=== PATIENT | male | born 2000 | race Caucasian/White ===

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

== ENCOUNTER → 2022-11-09 | Outpatient (CLI) | payer OTHER, SELFPAY ==
[2022-11-09 12:04] LABS: Bacteria 0 SEEN /hpf (None Seen); Mucous, Urine 0 SEEN /hpf (<or=2+); Red Blood Cells-Urine 0 SEEN /hpf (0-5); White Blood Cells 0 SEEN /hpf (0-5)
[2022-11-09 15:25] LABS: Color, Urine Yellow (Yellow); Glucose, Dipstick Normal (Normal); Ketone-Dipstick Negative (Negative); Leukocyte Esterase-Dipstick Negative /ul (Negative); Nitrite-Dipstick Negative (Negative); Occult Blood-Urine Negative /ul (Negative); Protein-Dipstick Negative (Negative); Urine Bilirubin Dipstick Negative (Negative); Urine Clarity Clear (Clear); Urine Urobilinogen Normal (Normal)
[2022-11-09 15:26] LABS: Absolute Lymphocyte Count 1.62 X10^3/uL (0.83-4.51); Absolute Neutrophil Count 2.1 X10^3/uL (2.0-7.7); Basophil# 0.06 X10^3/uL; Basophil% 1.4 % (0-1); Eosinophil# 0.14 X10^3/uL; Eosinophils% 3.3 % (0-5); Hematocrit 43.4 % (40-54); Hemoglobin 14.7 g/dL (13.0-16.5); Lymphocyte # 1.62 X10^3/ul (0.83-4.51); Lymphocyte % 38.1 % (19-41); Mean Corp Hgb Conc 33.9 g/dL (32-36); Mean Corpuscular Volume 88.6 fL (80-94); Mean Platelet Vol. 11.1 fl (6.2-12.0); Monocyte# 0.38 X10^3/uL; Monocyte% 8.9 % (0-10); NRBC Flagged by Analyzer 0 % (0-5); Neutrophil # 2.05 X10^3/uL (2.7-7.7); Neutrophil % 48.3 % (47-70); Platelet Count 213 K/mm3 (150-450); RBC Distribution Width CV 12.4 % (11.6-14.6); RBC Distribution Width SD 40.8 fl (35.1-43.9); White Blood Count 4.3 K/mm3 (4.4-11.0)
[2022-11-09 16:16] LABS: AST(SGOT) 17 U/L (15-37); Alanine Aminotransfer ALT/SGPT 25 U/L (16-61); Albumin, Serum 3.9 g/dL (3.2-5.0); Alkaline Phosphatase 81 U/L (45-117); Anion Gap 6 (5-15); BUN 11 mg/dL (7-18); BUN/Creat Ratio 11.1 RATIO (10-20); Calcium,Total 9.4 mg/dL (8.5-10.1); Chloride 109 mmol/L (98-107); Cholesterol 203 mg/dL (200); Creatinine, Serum 0.99 mg/dL (0.70-1.30); EST Glomerular Filtration Rate 102 mL/min (>60); Est Glom Filt Rate - Afr Amer 123 mL/min (>60); Globulin 3.8 g/dL (2.2-4.2); Glucose 96 mg/dL (74-106); High Density Lipoprotein 50 mg/dL; Potassium 3.9 mmol/L (3.5-5.1); Protein, Total 7.7 g/dL (6.4-8.2); Sodium Level 140 mmol/L (136-145); T4 Free Direct 0.85 ng/dL (0.76-1.46); Thyroid Stim Hormone (TSH) 1.23 uIU/mL (0.358-3.74); Triglycerides 105 mg/dL; Very Low Density Lipoprotein 21 mg/dL (5-40)
[2022-11-09 16:42] LABS: Squamous Epithelial Cells - UA 0-5 SEEN /hpf (0-5)
[2022-11-12 09:09] LABS: Anti-Thyroglobulin AB < 1.0 IU/mL (0.0-0.9); Thyroglobulin, Serum Qt. 49.7 ng/mL (1.4-29.2); Thyroid Peroxidase AB < 9 IU/mL (0-34); Thyroid Stim Immunoglob <0.10 IU/L (0.00-0.55)
== END | disposition home or self-care (01) ==
LOC: MTLAB 11:56
PROVIDERS: PCP Family Medicine; Referring Provider Family Medicine; Visit Provider Family Medicine
DX: E01.0 Iodine-deficiency related diffuse (endemic) goiter (principal); I10 Essential (primary) hypertension
CPT/HCPCS: 36415; 80053; 80061; 81001; 84432; 84439; 84443; 84445; 85025; 86376; 86800

== ENCOUNTER → 2023-03-12 | Outpatient (CLI) | payer OTHER, SELFPAY ==
--- NOTE | 2023-03-12 15:50 | US_ITS ---
EXAM: US RETROPERITONEAL LIMITED, RENAL CLINICAL INDICATION: HTN TECHNIQUE: Limited grayscale and color Doppler sonographic evaluation of the retroperitoneum was performed. COMPARISON: No relevant prior studies available. FINDINGS: RIGHT KIDNEY: Right kidney measures 12.8 x 5.9 x 5.5 cm. The right renal cortex measures 2.2 cm. No hydronephrosis. No shadowing calculus. No perinephric collection is demonstrated. LEFT KIDNEY: The left kidney measures 11.7 x 5.9 x 4.9 cm. The left renal cortex measures 2.2 cm. No hydronephrosis. No shadowing calculus. No perinephric collection is demonstrated. BLADDER: The bladder measures 6.1 x 8.3 x 8.4 cm for volume of 223 mL. The bladder wall measures 3 mm. There are bilateral ureteral jets. Post void the bladder measures 3.4 x 1.5 x 3.4 cm for volume of 9 mL. US/Kidney and Bladder IMPRESSION: No acute findings in the retroperitoneum. Electronically Signed: Roman Mejia MD at 0:00 EST ,
--- NOTE | 2023-03-12 15:50 | US_ITS ---
INDICATION: THYROMEGALY EXAMINATION: Ultrasound US Thyroid (eg thyroid, parathyroid, parotid) TECHNIQUE: Camacho scale and color doppler imaging was performed of the thyroid gland. COMPARISON: No relevant prior comparison study available FINDINGS: RIGHT THYROID LOBE: 5.2 x 1.7 x 1.6 cm, volume 7.5 mL. Parenchyma: The gland echotexture is homogenous. Thyroid vascularity is normal. LEFT THYROID LOBE: 5.1 x 1.8 x 1.2 cm, volume 5.7 mL. Parenchyma: The gland echotexture is homogenous. Thyroid vascularity is normal. ISTHMUS: 0.3 cm in maximum AP dimension. Estimated total number of nodules greater than equal to 1 cm: 0. Tiny colloid cysts noted. LYMPH NODES: Lymph nodes are seen in the neck with normal morphology. US/Thyroid IMPRESSION: Tiny colloid cysts. Otherwise unremarkable thyroid. Electronically Signed: Alejo Garrison MD at 0:46 EST ,
== END | disposition home or self-care (01) ==
PROVIDERS: PCP Family Medicine; Referring Provider Family Medicine; Visit Provider Family Medicine
DX: E01.0 Iodine-deficiency related diffuse (endemic) goiter (principal); I10 Essential (primary) hypertension
CPT/HCPCS: 76536; 76770

== ENCOUNTER 2023-04-14 12:00 | Outpatient (RCR) | payer OTHER, SELFPAY ==
--- NOTE | 2022-10-13 14:14 | HP.PTEVAL ---
Patient's Visit Information Visit Information Visit Information: RONAN LANDON is a 22 year old M referred to Physical Therapy by Dr. Lance Cheng MD with a diagnosis of S/P R ankle surgery 07/30/22. Date of Evaluation: 10/13/22 Physical Therapist: Bernard Hall, PT, ATC Visit Plan Frequency: 2-3x /Week Duration: 4-6 Weeks Plan: PT to be performed in a shoe. Begin with table ex's until after 10/19/22 when pt returns to Dr. Davis ankle PROM/mobs, stretching and strengthening, balance and proprio, bike, and HEP. Subjective Subjective: DOS: 07/30/22. Pt reports he had reconstruction surgery performed to his R ankle at that time secondary to have multiple torn ankle ligaments. 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 Pt notes he was 6 weeks NWB'ing, then able to transition to ambulating at that time. Pt reports he is here today to begin rehabilitation to his R ankle. Pt reports it is too early to tell if the surgery has worked at this time. Pt denies tingling or numbness in his R LE. Pt reports occasional sleep difficulty at this time secondary to sensitivity along his scars. 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 Pt has stairs at home but negotiates them one stair at a time. 1/10 pain while sitting here in the clinic, 5/10 pain at worst (when he attempts to ambulate after a lot of activity on his feet) Pain R ankle: Pain Intensity (Out of 10): 1 Pain Intensity Range: 5 Objective Objective: Neuro: B LE sensation is WNL to light touch throughout. Girth: R ankle 62 cm, L ankle 60 cm ROM: L ankle DF= 6, PF= 65; R ankle DF= 0, PF= 37 degrees MMT: L ankle DF= 37, PF= 79 #F; R ankle DF= 12, PF= 42 #F Balance/Special Test Scores Lower Extremity Functional Score: 31 Goals Goal 1:: Decrease R ankle pain x 50% to aid with sleep Goal Time Frame: 4-6 Weeks Goal 2:: Increase R ankle DF ROM x 15 degrees to aid with restoring a more normalized gait pattern Goal Time Frame: 4-6 Weeks Goal 3:: Increase R ankle strength x 20#F to aid with stair negotiation Goal Time Frame: 4-6 Weeks Goal 4:: I with HEP Goal Time Frame: 4-6 Weeks Rehabilitation Potential Physical Therapy Diagnosis: Pt has R ankle pain, weakness, and limited ROM secondary to R ankle surgery Rehabilitation Potential: Good Anticipated Interventions Patient/Client Instruction: Educate patient on: Condition and Plan of Care For the Purpose of:: To improve self management Therapeutic Exercise to Include: Strength training, Endurance training, Balance training, Flexibilty training, Gait and locomotor training, Passive ROM and Active ROM For the Purpose of:: To decrease pain, To increase ROM and To improve muscle performance and motor function Cryotherapy (ice pack, ice massage): Yes For the Purpose of:: To decrease pain Text: Thank you for the opportunity to evaluate your patient. For Medicare and Medicare HMO plans, please review the plan of care and approve it. It will need to be FAXED BACK to us at [phone] for Medicare purposes. For Medicare only, by signing this I certify the plan of care. Please let me know if there are questions or concerns regarding this plan of care. Physician Signature: Date:
--- NOTE | 2022-11-19 10:40 | HP.PTREVAL ---
Re-Evaluation Intro: Dr. Lance Cheng MD, It has been my pleasure to treat RONAN LANDON over the last 4 visits for S/P R ankle surgery 07/30/22. Please see the progress note below for an update on the physical therapy plan of care! Subjective Subjective: I still have a long way to go. Objective Objective/Function: R ankle pain ranges from 0-5/10 R ankle DF= 28 #F, PF= 60 #F R ankle DF ROM: 0 degrees Pt is progressing well with strength, but still lacks functional ROM and suffers from intolerance for prolonged standing/ambulation Plan Plan Plan: Focus on R ankle mobs/ROM, strengthening, and balance activity Balance/Gait/Functional tests Balance/Special Test Scores Lower Extremity Functional Score: 30 Goals Goals Goal 1:: Decrease R ankle pain x 50% to aid with sleep Goal Time Frame: 4-6 Weeks Goal Progress: Progressing Goal 2:: Increase R ankle DF ROM x 15 degrees to aid with restoring a more normalized gait pattern Goal Time Frame: 4-6 Weeks Goal Progress: Not Progressing Goal 3:: Increase R ankle strength x 20#F to aid with stair negotiation Goal Time Frame: 4-6 Weeks Goal Progress: Progressing Goal 4:: I with HEP Goal Time Frame: 4-6 Weeks Goal Progress: Progressing Anticipated Interventions Anticipated Interventions Patient/Client Instruction: Educate patient on: Condition and Plan of Care For the Purpose of:: To improve self management Therapeutic Exercise to Include: Strength training, Endurance training, Balance training, Flexibilty training, Gait and locomotor training, Passive ROM and Active ROM For the Purpose of:: To decrease pain, To increase ROM and To improve muscle performance and motor function Cryotherapy (ice pack, ice massage): Yes For the Purpose of:: To decrease pain Re-Evaluation Ending Re-evaluation ending: Please do not hesitate to contact me at [phone] by phone or if you have questions or concerns regarding this new plan of care! Sincerely, Bernard Hall, PT, ATC
--- NOTE | 2022-12-18 15:27 | HP.PTREVAL ---
Re-Evaluation Intro: Dr. Lance Cheng MD, It has been my pleasure to treat RONAN LANDON over the last 13 visits for S/P R ankle surgery 07/30/22. Please see the progress note below for an update on the physical therapy plan of care! Subjective Subjective: Getting better. stairs are improving. More time out of brace. Mobility improving. No pain with basic activities. To doctor when done in PT. needs to get cleared for basketball from doctor. needs to get better at speed work, jogging , running, cannot walk and standing longer than 2.5 hrs gets tiring and sore laterally. Up to 06/22. HEP:stretching only. Objective Objective/Function: 67# df, 40# inv, 24# eversion, DF and eversion the weakest. 3 degree DF. Walks well, steps reciprocally but avoids forefoot on R side. gastroc adn especially soleus still very tight. New goals set with New POC and fair prognosis for continued imprvoement, pt seems willing to work toward an i gym ex program but will need help to do it. Plan Plan Plan: 3x/week for 4 weeks for 1. Please teach overall fitness program for patient to do I in gym as member 2. ensure ankel strength and proprioception via HEP 3. Progression to jogging, proprioceptive, agility and plyo to tolerance in clinic and ythen to HEp as tolerated. Balance/Gait/Functional tests Balance/Special Test Scores Lower Extremity Functional Score: 43 Goals Goals Goal 1:: Decrease R ankle pain x 50% to aid with sleep Goal Time Frame: 4-6 Weeks Goal Progress: Goal Met Goal 2:: Increase R ankle DF ROM x 15 degrees to aid with restoring a more normalized gait pattern Goal Time Frame: 4-6 Weeks Goal Progress: Progressing Goal 3:: Increase R ankle strength x 20#F to aid with stair negotiation Goal Time Frame: 4-6 Weeks Goal Progress: Progressing Goal 4:: I with HEP Goal Time Frame: 4-6 Weeks Goal Progress: compliance? Goal 5:: LEFS 63 Goal Time Frame: 4-6 Weeks Goal Progress: NEW GOAL Goal 6:: Jog 5 min without increased pain Goal Time Frame: 4-6 Weeks Goal Progress: NEW GOAL Anticipated Interventions Anticipated Interventions Patient/Client Instruction: Educate patient on: Condition and Plan of Care For the Purpose of:: To improve self management Therapeutic Exercise to Include: Strength training, Endurance training, Balance training, Flexibilty training, Gait and locomotor training, Passive ROM and Active ROM For the Purpose of:: To decrease pain, To increase ROM and To improve muscle performance and motor function Cryotherapy (ice pack, ice massage): Yes For the Purpose of:: To decrease pain Re-Evaluation Ending Re-evaluation ending: Please do not hesitate to contact me at [phone] by phone or if you have questions or concerns regarding this new plan of care! Sincerely, Ramy Marshall, JESUST, OCS, CSCS
--- NOTE | 2023-01-15 12:36 | HP.PTREVAL ---
Re-Evaluation Intro: Dr. Lance Cheng MD, It has been my pleasure to treat RONAN LANDON over the last 22 visits for S/P R ankle surgery 07/30/22. Please see the progress note below for an update on the physical therapy plan of care! Subjective Subjective: Doctor said soreness was normal and expected. No precautions. Sore ness not bad today. Gets sore with therapy and then activity like golf gets sore 6/10 laterally at L ankle. Sleep is fine. strength is improving not great 60% Activities: avoiding basketball, jogging etc. been doing wall stretch and calf raise s. Will get membership here and do workout full body. Objective Objective/Function: 3 degrees DF R ankle 50 PF, 12 eversion and 30 inversion. Walking well without gait deficits, steps look good up and down and symmetrical. Tight hips present full squats and avoids R side slightly but no pain. 5/5 ankle strength all 4 directions. jumps well on both feet but obviously lower and harder motor control wie on R SL hop. Jogs well short distances but has some mild R deficits pushing off. Overall doign well with basic funcitons. Needs to cotninue strength and will need help with progression of jogging, plyometric and agility. Plan Plan Plan: 1-2x/week for 4-8 weeks for... 1. Pt to do gym based strength as member himself, we can monitor this. 2. Jogging, agility, jumping progression and give to gym program as tolerated so he has a great plyo, agility , jog program in 1-2 months for d/c Goals appropriate and new ones, fair prognosis Balance/Gait/Functional tests Balance/Special Test Scores Lower Extremity Functional Score: 49 Goals Goals Goal 1:: cut and jump at 100% without increasing pain or dysfunction on one foot R. Goal Time Frame: 8-12 Weeks Goal Progress: NEW GOAL Goal 2:: Increase R ankle DF ROM x 15 degrees to aid with restoring a more normalized gait pattern Goal Time Frame: 4-6 Weeks Goal Progress: Progressing Goal 3:: Increase R ankle strength x 20#F to aid with stair negotiation Goal Time Frame: 4-6 Weeks Goal Progress: Goal Met Goal 4:: I with HEP Goal Time Frame: 4-6 Weeks Goal Progress: needs plyo, jog, agility Goal 5:: LEFS 63 Goal Time Frame: 4-6 Weeks Goal Progress: Progressing, approp Goal 6:: Jog 5 min without increased pain Goal Time Frame: 4-6 Weeks Goal Progress: not met???approp Anticipated Interventions Anticipated Interventions Patient/Client Instruction: Educate patient on: Condition and Plan of Care For the Purpose of:: To improve self management Therapeutic Exercise to Include: Strength training, Endurance training, Balance training, Flexibilty training, Gait and locomotor training, Passive ROM and Active ROM For the Purpose of:: To decrease pain, To increase ROM and To improve muscle performance and motor function Cryotherapy (ice pack, ice massage): Yes For the Purpose of:: To decrease pain Re-Evaluation Ending Re-evaluation ending: Please do not hesitate to contact me at [phone] by phone or if you have questions or concerns regarding this new plan of care! Sincerely, Ramy Marshall, DPT, OCS, CSCS
--- NOTE | 2023-03-10 12:34 | HP.PTREVAL ---
Re-Evaluation Intro: Dr. Lance Cheng MD, It has been my pleasure to treat RONAN LANDON over the last 30 visits for S/P R ankle surgery 07/30/22. Please see the progress note below for an update on the physical therapy plan of care! Subjective Subjective: I am feeling better. I am not limited with my IADL's. Objective Objective/Function: R ankle pain ranges from 1-7/10 R ankle DF 0 degrees R ankle MMT: DF= 34, PF= 53 #F Pt is progressing well but still lacks the functional strength Plan Plan Plan: Cont with POC with focus on running activity, sport specific drlls, and plyometrics Balance/Gait/Functional tests Balance/Special Test Scores Lower Extremity Functional Score: 60 Goals Goals Goal 1:: cut and jump at 100% without increasing pain or dysfunction on one foot R. Goal Time Frame: 8-12 Weeks Goal Progress: Progressing Goal 2:: Increase R ankle DF ROM x 15 degrees to aid with restoring a more normalized gait pattern Goal Time Frame: 4-6 Weeks Goal Progress: Progressing Goal 3:: Increase R ankle strength x 20#F to aid with stair negotiation Goal Time Frame: 4-6 Weeks Goal Progress: Goal Met Goal 4:: I with HEP Goal Time Frame: 4-6 Weeks Goal Progress: needs plyo, jog, agility Goal 5:: LEFS 63 Goal Time Frame: 4-6 Weeks Goal Progress: Progressing, approp Goal 6:: Jog 5 min without increased pain Goal Time Frame: 4-6 Weeks Goal Progress: Progressing Anticipated Interventions Anticipated Interventions Patient/Client Instruction: Educate patient on: Condition and Plan of Care For the Purpose of:: To improve self management Therapeutic Exercise to Include: Strength training, Endurance training, Balance training, Flexibilty training, Gait and locomotor training, Passive ROM and Active ROM For the Purpose of:: To decrease pain, To increase ROM and To improve muscle performance and motor function Cryotherapy (ice pack, ice massage): Yes For the Purpose of:: To decrease pain Re-Evaluation Ending Re-evaluation ending: Please do not hesitate to contact me at [phone] by phone or if you have questions or concerns regarding this new plan of care! Sincerely, Bernard Hall, PT, ATC
--- NOTE | 2023-04-14 13:21 | HP.PTREVAL ---
Re-Evaluation Intro: Dr. Lance Cheng MD, It has been my pleasure to treat RONAN LANDON over the last 33 visits for S/P R ankle surgery 07/30/22. Please see the progress note below for an update on the physical therapy plan of care! Subjective Subjective: Pt reports very minimal pain at this time. Minor unsteadiness still present. Objective Objective/Function: R ankle pain is ranging from 1-6/10 R ankle DF ROM 0 degrees R ankle MMT: DF= 63, PF= 87 #F Pt is now able to run at 100% without pain, but unable to cut and jump equal to his L foot at 100% Pt is progressing well, but still lacks the ability to participate in sports without limitation Plan Plan Plan: Cont with POC with focus on running activity, sport specific drills, and plyometrics Balance/Gait/Functional tests Balance/Special Test Scores Lower Extremity Functional Score: 67 Goals Goals Goal 1:: cut and jump at 100% without increasing pain or dysfunction on one foot R. Goal Time Frame: 8-12 Weeks Goal Progress: Progressing Goal 2:: Increase R ankle DF ROM x 15 degrees to aid with restoring a more normalized gait pattern Goal Time Frame: 4-6 Weeks Goal Progress: Progressing Goal 3:: Increase R ankle strength x 20#F to aid with stair negotiation Goal Time Frame: 4-6 Weeks Goal Progress: Goal Met Goal 4:: I with HEP Goal Time Frame: 4-6 Weeks Goal Progress: needs plyo, jog, agility Goal 5:: LEFS 63 Goal Time Frame: 4-6 Weeks Goal Progress: Progressing, approp Goal 6:: Jog 5 min without increased pain Goal Time Frame: 4-6 Weeks Goal Progress: Goal Met Anticipated Interventions Anticipated Interventions Patient/Client Instruction: Educate patient on: Condition and Plan of Care For the Purpose of:: To improve self management Therapeutic Exercise to Include: Strength training, Endurance training, Balance training, Flexibilty training, Gait and locomotor training, Passive ROM and Active ROM For the Purpose of:: To decrease pain, To increase ROM and To improve muscle performance and motor function Cryotherapy (ice pack, ice massage): Yes For the Purpose of:: To decrease pain Re-Evaluation Ending Re-evaluation ending: Please do not hesitate to contact me at [phone] by phone or if you have questions or concerns regarding this new plan of care! Sincerely, Bernard Hall, PT, ATC
== END 2023-04-14 19:00 | disposition home or self-care (01) ==
LOC: PT 12:00
PROVIDERS: PCP Pediatrics; Referring Provider Orthopaedic Surgery Foot and Ankle Surgery; Visit Provider Orthopaedic Surgery Foot and Ankle Surgery
DX: M25.371 Other instability, right ankle (principal)
CPT/HCPCS: 97014; 97110; 97140; 97161; 97164; 97530; G0283

== ENCOUNTER → 2023-10-11 | Outpatient (CLI) | payer OTHER, SELFPAY ==
--- NOTE | 2023-10-11 10:08 | RDU_ITS ---
Reason For Study: Early onset HTN Right Renal Artery Left Renal Artery Right renal artery ostium 107/32.1 Left renal artery ostium 138.1/48.6 RSV/EDV. PSV/EDV. Right renal artery proximal Left renal artery proximal PSV/EDV 99.7/37.6 PSV/EDV. 147.2/54.1 . Right renal artery mid 177.7/53.4 Left renal artery mid 149/52.2 PSV/EDV. PSV/EDV . Right renal artery distal Left renal artery distal 148.4/51.8 164.8/50.8 PSV/EDV. PSV/EDV. Right Renal Parenchyma Left Renal Parenchyma Upper Pole Medula 38/15.2 PSV/EDV. Left upper pole medulla 45.8/20.6 Right upper pole medulla EDR 0.4 . PSV/EDV . Right upper pole medulla R.I. Left upper pole medulla EDR 0.5 . 0.60 . Left upper pole medulla R.I. 0.55 . Upper Galindo Cortx 20.1/8 PSV/EDV. UP Cortex 28.4/11.9 PSV/EDV. Right upper pole cortex EDR 0.4 . Left upper pole cortex EDR 0.4 . Right upper pole cortex R.I. 0.60 . Left upper pole cortex R.I. 0.58 . Right lower Pole medulla 37.7/15.7 Left lower Pole medulla 47.6/17.9 PSV/EDV . PSV/EDV . Right lower pole medulla EDR 0.4 . Left lower pole medulla EDR 0.4 . Right lower pole medulla R.I. Left lower pole medulla R.I. 0.62 . 0.58 . Lower Pole Cortx 17.4/5.8 PSV/EDV. Lower Pole Cortex 21.8/8.6 PSV/EDV. Left lower pole cortex EDR 0.3 . Right lower pole cortex EDR 0.4 . Left lower pole cortex R.I. 0.66 . Right lower pole cortex R.I. 0.61 . Left Renal Hilar Right Renal Hilar LT Hilar avg 73.8/27 PSV/EDV . Right Hilar avg 70.9/31.4 PSV/EDV. Left hilar acceleration time 30 Right hilar acceleration time 40 m/sec. m/sec. Left Renal Dimensions Right Renal Dimensions Left kidney size 10.48 cm . Right kidney size 1.18 cm . Left cortical dimension 2.12 cm . Right cortical dimension 2.01 cm . Aorta Proximal abdominal aorta 1.28 x 1.18 cm . Proximal abdominal aorta peak systolic velocity is 119.9 cm/sec . Distal abdominal aorta 1.45 x 1.36 cm . Distal abdominal aorta peak systolic velocity is 137.4 cm/sec . Procedures Image 18 is RRA distal and Image 19 is LRA mid. VL/Renal Artery Duplex Ultrasound Interpretation Summary Normal aortic diameter maximally distally at 1.45 x 1.36 cm in diameter. Flow r ate slightly elevated at 137.4 cm/s flow which invalidates renal artery to aortic ratios. Less than 60% stenosis right renal artery Maintained right renal length is 11.22 cm Less than 60% stenosis left renal artery Maintained left renal length at 10.48 cm Normal renal resistive indices indices suggesting normal parenchymal function. Ordering Physician: Anton Bosch Referring Physician: Anton Bosch Performed By: Herlinda Porras RVT
== END | disposition home or self-care (01) ==
PROVIDERS: PCP Family Medicine; Referring Provider Family Medicine; Visit Provider Family Medicine
DX: I10 Essential (primary) hypertension (principal)
CPT/HCPCS: 93975

== ENCOUNTER → 2023-12-29 | Outpatient (CLI) | payer OTHER, SELFPAY | END | disposition home or self-care (01) | LOC: SL 19:58 | PROVIDERS: PCP Family Medicine; Referring Provider Internal Medicine Pulmonary Disease; Visit Provider Internal Medicine Pulmonary Disease | DX: G47.10 Hypersomnia, unspecified (principal) | CPT/HCPCS: 95810 ==

== ENCOUNTER → 2024-02-01 | Outpatient (CLI) | payer OTHER, SELFPAY ==
[2024-02-01 14:01] LABS: Red Blood Cells-Urine 0 SEEN /hpf (0-5); Squamous Epithelial Cells - UA 0 SEEN /hpf (0-5)
[2024-02-01 17:38] LABS: Absolute Lymphocyte Count 1.99 X10^3/uL (0.83-4.51); Absolute Neutrophil Count 2.8 X10^3/uL (2.0-7.7); Basophil# 0.06 X10^3/uL; Basophil% 1.1 % (0-1); Eosinophil# 0.06 X10^3/uL; Eosinophils% 1.1 % (0-5); Hematocrit 45.5 % (40-54); Lymphocyte # 1.99 X10^3/ul (0.83-4.51); Lymphocyte % 36.9 % (19-41); Mean Corpuscular Hgb 29.9 pg (27.0-32.0); Mean Corpuscular Volume 90.6 fL (80-94); Mean Platelet Vol. 11.2 fl (6.2-12.0); Monocyte# 0.43 X10^3/uL; NRBC Flagged by Analyzer 0 % (0-5); Neutrophil # 2.83 X10^3/uL (2.7-7.7); Neutrophil % 52.5 % (47-70); Platelet Count 238 K/mm3 (150-450); RBC Distribution Width CV 12.7 % (11.6-14.6); RBC Distribution Width SD 41.9 fl (35.1-43.9); Red Blood Count 5.02 M/mm3 (4.6-6.2); White Blood Count 5.4 K/mm3 (4.4-11.0)
[2024-02-01 18:00] LABS: Color, Urine Yellow (Yellow); Glucose, Dipstick Normal (Normal); Ketone-Dipstick 15 mg/dl (Negative); Leukocyte Esterase-Dipstick 25 /ul (Negative); Nitrite-Dipstick Negative (Negative); Occult Blood-Urine Negative /ul (Negative); Protein-Dipstick 15 mg/dl (Negative); Urine Bilirubin Dipstick Negative (Negative); Urine Clarity Clear (Clear); Urine Urobilinogen 1 mg/dl (Normal)
[2024-02-01 18:15] LABS: ALB/GLOB Ratio 0.9 RATIO (0.9-2.4); AST(SGOT) 20 U/L (15-37); Alanine Aminotransfer ALT/SGPT 28 U/L (16-61); Alkaline Phosphatase 72 U/L (45-117); Anion Gap 6 (5-15); BUN 15 mg/dL (7-18); BUN/Creat Ratio 13.2 RATIO (10-20); Calcium,Total 9.8 mg/dL (8.5-10.1); Chloride 106 mmol/L (98-107); Cholesterol 188 mg/dL (200); Creatinine, Serum 1.14 mg/dL (0.70-1.30); EST Glomerular Filtration Rate 86 mL/min (>60); Est Glom Filt Rate - Afr Amer 104 mL/min (>60); Globulin 4.3 g/dL (2.2-4.2); Glucose 90 mg/dL (74-106); High Density Lipoprotein 62 mg/dL; Magnesium 2.2 mg/dL (1.6-2.6); Potassium 3.8 mmol/L (3.5-5.1); Protein, Total 8.3 g/dL (6.4-8.2); Sodium Level 136 mmol/L (136-145); Thyroid Stim Hormone (TSH) 0.504 uIU/mL (0.358-3.740); Triglycerides 55 mg/dL; Very Low Density Lipoprotein 11 mg/dL (5-40)
[2024-02-01 18:20] LABS: Bacteria RARE /hpf (None Seen); Mucous, Urine 3+ /hpf (<or=2+); White Blood Cells 0-5 SEEN /hpf (0-5)
== END | disposition home or self-care (01) ==
LOC: MFPLAB 13:55
PROVIDERS: PCP Family Medicine; Visit Provider Family Medicine
DX: I10 Essential (primary) hypertension (principal)
CPT/HCPCS: 36415; 80053; 80061; 81001; 83735; 84443; 85025

== ENCOUNTER → 2024-03-23 | Outpatient (CLI) | payer OTHER, SELFPAY ==
--- NOTE | 2024-03-23 14:42 | RAD_ITS ---
STUDY: X-RAY - RIGHT ELBOW REASON FOR EXAM: Male, 23 years old. Pain TECHNIQUE: 4 view(s) of the elbow. COMPARISON: None. FINDINGS: Normal visualized humerus, radius and ulna. Normal radiocapitellar and ulnotrochlear articulations. The soft tissue structures are unremarkable. RAD/Elbow min 3 Views IMPRESSION: Normal x-ray examination of the elbow. Electronically Signed: Abraham Pan MD at 15:24 EST ,
== END | disposition home or self-care (01) ==
LOC: MTRAD 14:36
PROVIDERS: PCP Family Medicine; Referring Provider Physician Assistant Surgical; Visit Provider Physician Assistant Surgical
DX: M25.521 Pain in right elbow (principal)
CPT/HCPCS: 73080

== ENCOUNTER → 2024-07-11 | Outpatient (CLI) | payer OTHER, SELFPAY ==
[2024-07-11 18:01] LABS: Absolute Lymphocyte Count 2.15 X10^3/uL (0.83-4.51); Absolute Neutrophil Count 2.9 X10^3/uL (2.0-7.7); Basophil# 0.05 X10^3/uL; Basophil% 0.9 % (0-1); Eosinophil# 0.08 X10^3/uL; Eosinophils% 1.4 % (0-5); Hematocrit 42.6 % (40-54); Hemoglobin 14.8 g/dL (13.0-16.5); Lymphocyte # 2.15 X10^3/ul (0.83-4.51); Lymphocyte % 37.3 % (19-41); Mean Corp Hgb Conc 34.7 g/dL (32-36); Mean Corpuscular Hgb 30.8 pg (27.0-32.0); Mean Corpuscular Volume 88.6 fL (80-94); Mean Platelet Vol. 11.1 fl (6.2-12.0); Monocyte# 0.53 X10^3/uL; Monocyte% 9.2 % (0-10); NRBC Flagged by Analyzer 0 % (0-5); Neutrophil # 2.94 X10^3/uL (2.7-7.7); Platelet Count 246 K/mm3 (150-450); RBC Distribution Width CV 12.5 % (11.6-14.6); RBC Distribution Width SD 41.1 fl (35.1-43.9); Red Blood Count 4.81 M/mm3 (4.6-6.2); White Blood Count 5.8 K/mm3 (4.4-11.0)
[2024-07-11 18:30] LABS: ALB/GLOB Ratio 1.6 RATIO (0.9-2.4); AST(SGOT) 21 U/L (<=37); Alanine Aminotransfer ALT/SGPT 17 U/L (<=46); Albumin, Serum 4.7 g/dL (3.5-5.0); Alkaline Phosphatase 67 U/L (40-129); Anion Gap 12 (5-15); BUN 15 mg/dL (4-19); BUN/Creat Ratio 15.1 RATIO (10-20); Calcium,Total 10.2 mg/dL (7.6-11.0); Carbon Dioxide 24.6 mmol/L (21.0-32.0); Chloride 103 mmol/L (98-108); Creatinine, Serum 0.99 mg/dL (0.70-1.20); EST Glomerular Filtration Rate 111 (>60); Glucose 93 mg/dL (70-99); Potassium 3.9 mmol/L (3.3-5.1); Protein, Total 7.8 g/dL (5.9-8.4); Sodium Level 140 mmol/L (133-145); Total Bilirubin 0.37 mg/dL (0.00-1.30)
== END | disposition home or self-care (01) ==
LOC: MTLAB 14:52
PROVIDERS: PCP Family Medicine; Referring Provider Family Medicine; Visit Provider Family Medicine
DX: R00.0 Tachycardia, unspecified (principal)
CPT/HCPCS: 36415; 80053; 83735; 84439; 84443; 85025

== ENCOUNTER → 2024-08-14 | Outpatient (CLI) | payer OTHER, SELFPAY ==
--- NOTE | 2024-08-14 10:42 | ECHOD_ITS ---
Reason For Study Reason For Study: TACHYCARDIA Procedure This was a 2D Doppler, Color Flow transthoracic echocardiogram. Exam performed in department. Left Ventricle Normal size and thickness. The LV systolic function is normal. EF is 60 %. No evidence for diastolic dysfunction. Right Ventricle Normal right ventricle. Atria The left and right atria are normal. Mitral Valve Mild (1+) mitral valve insufficiency. Tricuspid Valve Mild tricuspid valve insufficiency. Normal pulmonary artery pressure. Aortic Valve Trisinus/trileaflet aortic valve. Pulmonic Valve The pulmonic valve is not well visualized. Trivial pulmonic valve insufficiency. Great Vessels Normal sized aortic root. Pericardium/Pleural No pericardial effusion. MMode/2D Measurements & Calculations LVIDd: 5.0 cm IVSd: 1.1 cm LVOT diam: 2.2 cm LVIDs: 3.3 cm LVPWd: 0.99 cm LVOT area: 3.7 cm2 RVDd: 3.7 cm FS: 32.9 % asc Aorta Diam: 2.8 cm LAV(MOD-bp): 36.7 ml LVAd ap4: 31.4 cm2 LAV(MOD-bp) Indexed: 15.6 ml/m2 LVLd ap4: 8.5 cm LAV(MOD-sp2): 36.0 ml EDV(MOD-sp4): 94.9 ml LAV(MOD-sp4): 32.7 ml EDV(sp4-el): 99.2 ml LVAs ap4: 18.6 cm2 LVLs ap4: 7.4 cm ESV(MOD-sp4): 38.5 ml ESV(sp4-el): 39.5 ml EF(MOD-sp4): 59.4 % EF(sp4-el): 60.2 % LVAd ap2: 28.7 cm2 SV(MOD-sp4): 56.4 ml SV(MOD-sp2): 48.3 ml LVLd ap2: 9.0 cm SI(MOD-sp4): 24.0 ml/m2 SI(MOD-sp2): 20.6 ml/m2 EDV(MOD-sp2): 79.1 ml EDV(sp2-el): 78.2 ml LVAs ap2: 16.7 cm2 LVLs ap2: 7.7 cm ESV(MOD-sp2): 30.7 ml ESV(sp2-el): 30.6 ml EF(MOD-sp2): 61.1 % SV(sp4-el): 59.7 ml Ao sinus diam: 2.[address] Junction: 2.2 cm LA dimension(2D): 3.7 cm LA A4 area: 14.4 cm2 RA A4 area: 17.0 cm2 TAPSE: 2.0 cm Time Measurements MV dec time: 0.15 sec Doppler Measurements & Calculations MV E max mynor: 81.5 cm/sec Lat Peak E' Mynor: 16.7 cm/sec Med Peak E' Mynor: 12.5 cm/sec MV A max mynor: 44.8 cm/sec E/E' lat: 4.9 E/E' med: 6.5 MV E/A: 1.8 MV dec slope: 559.8 cm/sec2 Ao V2 max: 109.2 cm/sec LV V1 max: 102.9 cm/sec Ao max P.8 mmHg LV V1 max P.2 mmHg Ao V2 mean: 76.2 cm/sec LV V1 mean P.1 mmHg Ao mean P.6 mmHg LV V1 mean: 67.7 cm/sec Ao V2 VTI: 23.7 cm LV V1 VTI: 19.9 cm AV (velocity ratio): 0.84 GAB(I,D): 3.1 cm2 GAB(V,D): 3.5 cm2 SV(LVOT): 73.7 ml PA V2 max: 109.8 cm/sec TR max mynor: 208.5 cm/sec TR max P.4 mmHg ECHO/Echo Complete Interpretation Summary The LV systolic function is normal. EF is 60 %. No evidence for diastolic dysfunction. Mild (1+) mitral valve insufficiency. Mild tricuspid valve insufficiency. Ordering Physician: Anton Bosch Referring Physician: Anton Bosch Performed By: Lisa Kim RDCS
== END | disposition home or self-care (01) ==
LOC: CVS 10:40
PROVIDERS: PCP Family Medicine; Referring Provider Family Medicine; Visit Provider Family Medicine
DX: R00.0 Tachycardia, unspecified (principal)
CPT/HCPCS: 93306

== ENCOUNTER → 2024-11-01 | Outpatient (CLI) | payer OTHER, SELFPAY ==
--- NOTE | 2024-11-01 13:02 | CT_ITS ---
EXAM: CT performed for Cardiac Angiography CTA CLINICAL HISTORY: Heart block COMPARISON: None. TECHNIQUE: CT performed for Cardiac Angiography CTA Dose: CTDIvol 64.44 mGy. DLP 1003.77 mGy-cm. CT/Cardiac Angiography CTA IMPRESSION: Limited imaging of the lungs demonstrates no acute process. No pleural effusion or pneumothorax is seen in visualized areas. No adenopathy is noted. The visualized upper abdomen demonstrates no significant abnormality. Reading Location: [place] [id number]
--- NOTE | 2024-11-01 13:06 | CT_ITS ---
PROCEDURE: LIMITED CHEST CT CARDIAC ONLY 11/01/2024 REASON FOR EXAM: HEART BLOCK TECHNIQUE: LIMITED CHEST CT CARDIAC ONLY CONTRAST: Isovue 370 VOLUME: 60 mL One or more dose reduction techniques were used (e.g., Automated exposure control, adjustment of the mA and/or kV according to patient size, use of iterative reconstruction technique). RADIATION DOSE SUMMARY: CTDlvol: 32 mGy DLP: 1003.77 mGycm COMPARISON: None FINDINGS: The heart is nonenlarged. No evidence of coronary artery calcification. The lungs are clear. CT/Limited Chest CT Cardiac Only IMPRESSION: No coronary artery calcification. Reading Location: [facility]
[2024-11-01 13:11] VITALS: BP 149/70; PULSE 55; RESP 16; TEMP 36.3; O2SAT 100; BMI 26.6
[2024-11-01 13:38] VITALS: BP 149/70; PULSE 55
[2024-11-01] MEDS: Nitroglycerin SL (ED/IMG/CATH) 0.4 MG TABLET SL (13:38)
[2024-11-01 13:47] VITALS: BP 156/66; PULSE 65; RESP 16; O2SAT 100
--- NOTE | 2024-11-01 18:44 | CCTA.WCONT ---
CCTA w/Cont Coronary Arteries Date of Study:: 11/01/24 Intermittent heart block Coronary Calcium Scoring: High-resolution Computed Tomographic imaging of the chest was performed on [11/01/2024], with particular attention paid to the coronary arteries. Intravenous contrast agent was administered per protocol and images reconstructed and displayed. LEFT MAIN CORONARY ARTERY: Arises from the left main coronary cusp [] LEFT ANTERIOR DESCENDING CORONARY ARTERY: Left anterior descending artery is a medium size vessel coursing towards the apex of the left ventricle. No significant abnormalities or atherosclerotic plaques are noted. [] LEFT CIRCUMFLEX CORONARY ARTERY: Nondominant vessel arising from the left coronary cusp with no significant atherosclerotic plaquing or stenosis noted. [] RIGHT CORONARY ARTERY: Dominant right coronary artery with no significant atherosclerotic plaquing noted. [] THORACIC AORTA: [] PULMONARY ARTERY: [] LEFT ATRIUM/APPENDAGE: [] MITRAL VALVE: [] AORTIC VALVE: [] LEFT VENTRICLE: [] CORONARY CALCIUM SCORE: [] Calcium Scoring Interpretation: Different methods to categorize the overall amount of coronary plaque. Overall amount CAC SIS Visual of coronary plaque P1 Mild -100 <2 1-2 vessels with mild amount of plaque P2 Moderate 101-300 3-4 1-2 vessels with moderate amount, 3 vessels with mild amount of plaque P3 Severe 301-999 5-7 3 vessels with moderate amount, 1 vessel with severe amount of plaque P4 Extensive >1000 >8 2-3 vessels with severe amount of plaque Conclusion: CT angiogram with no atherosclerotic plaquing or stenosis present.
== END | disposition home or self-care (01) ==
LOC: CT 12:56
PROVIDERS: PCP Family Medicine; Referring Provider Nurse Practitioner Family; Visit Provider Nurse Practitioner Family
DX: I45.9 Conduction disorder, unspecified (principal); I10 Essential (primary) hypertension; I95.1 Orthostatic hypotension
CPT/HCPCS: 75574; 76380; Q9967

== ENCOUNTER → 2024-11-23 | Outpatient (CLI) | payer OTHER, SELFPAY ==
[2024-11-30 12:08] LABS: Dopamine, Pl <10.0 pg/mL (0.0-36.7); Epinephrine, Pl 61.8 pg/mL (0.0-55.4); Norepinephrine, Pl 190 pg/mL (115-524)
== END | disposition home or self-care (01) ==
PROVIDERS: PCP Family Medicine; Referring Provider Physician Assistant Medical; Visit Provider Physician Assistant Medical
DX: I10 Essential (primary) hypertension (principal)
CPT/HCPCS: 36415; 82384; 84244

== ENCOUNTER → 2024-12-19 | Outpatient (CLI) | payer OTHER, SELFPAY ==
[2024-12-19 16:28] LABS: 24HR. Urine Creatinine 1647.0 mg/24 hr (1040.0-2350.0)
[2025-01-03 12:08] LABS: Dopamine, 24Ur 271 ug/24 hr (0-510); Epinephrine, 24Ur 7 ug/24 hr (0-20); Metanephrine, Ur 155 ug/L (Undefined); Metanephrines, 24Ur 105 ug/24 hr (58-276); Norepinephrine, 24Ur 19 ug/24 hr (0-135); Norepinephrine, Ur 28 ug/L (Undefined); Normetanephrines, 24Ur 161 ug/24 hr (110-553); Normetanephrines, Ur 238 ug/L (Undefined)
== END | disposition home or self-care (01) ==
LOC: LABSPEC 12:36
PROVIDERS: PCP Family Medicine; Referring Provider Family Medicine; Visit Provider Family Medicine
DX: I10 Essential (primary) hypertension (principal)
CPT/HCPCS: 81050; 82384; 82570; 83835

== ENCOUNTER 2025-01-01 14:24 | Outpatient (RCR) | payer OTHER, SELFPAY ==
--- NOTE | 2025-01-02 14:47 | HP.OTFCE.D ---
FCE D/C Summary Discharge text: RONAN MCGOWANEY was seen for a one time visit for an FCE on 01/01/25 and is discharged.
--- NOTE | 2025-01-02 14:47 | HP.FCE ---
Task Lift Floor (Occasional 1-33% of Day): 50# Floor (Frequent 34-66% of Day): 25# Floor (Constant 67-100% of Day): NA Floor PDL: Medium Knee (Occasional 1-33% of Day): 50# Knee (Frequent 34-66% of Day): 25# Knee (Constant 67-100% of Day): NA Knee PDL: Medium Waist (Occasional 1-33% of Day): 50# Waist (Frequent 34-66% of Day): 25# Waist (Constant 67-100% of Day): NA Waist PDL: Medium Shoulder (Occasional 1-33% of Day): 45# Shoulder (Frequent 34-66% of Day): 22# Shoulder (Constant 67-100% of Day): NA Shoulder PDL: Light-Medium Overhead (Occasional 1-33% of Day): 45# Overhead (Frequent 34-66% of Day): 22# Overhead (Constant 67-100% of Day): NA Overhead PDL: Light-Medium Comments: Median physical demand level for lifting from floor, knee waist levels Light-Medium physical demand level for lifting at shoulder and overhead levels. Work Activity/Posture Bending: Occasional Ability (1-33% of day) Squatting: Occasional Ability (1-33% of day) Kneeling: Occasional Ability (1-33% of day) Reaching out: Frequent Ability (34-66% of day) Reaching up: Frequent Ability (34-66% of day) Sitting: Frequent Ability (34-66% of day) Walking: Occasional Ability (1-33% of day) Standing: Occasional Ability (1-33% of day) Reference Reference: Duration Sedentary Sedentary Light Light Light Medium Medium Medium Heavy Very Heavy Heavy Occasional (0-33% of day) Frequent (34-66% of day) Constant (67-100% of day) 10 # Negligible Negligible 15 # 8 # Negligible 20 # 10# Negli. 35 # 18 # 7 # 50 # 25 # 10 # 75 # 100 # >100 # 38 # 50 # >50 # 15 # 20 # >20 # Patient Information Height: 1.98 m Weight:: 106.594 kg Hand Dominance: Right Medical History Medical History Including Restrictions: Pt dx with Orthostatic Hypotension pt states he has had dx for 6-7 months. States symptoms are dizziness/lightheadedness and nausea. pt states dx with POTS with positive tilt table testing. pt currently on medication to assist with his dx. pt will see Specialist 2025 to get further conclusive medical mtg. 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 Pt states he is involved in playing golf, basketball and flag football. 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 pt is not sure what limitations his body has at this time as this new dx. and difficulty to figure out. 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 pt states he is required to lift 50# pt states he is able to perform his job but the dizziness , and light headedness stops him from working. pt states he would like to keep his job and be able to take intermittent medical days. When his symptoms become too intense. pt states due to the dizziness and nausea he has not been able to stand more than 20 min or so. 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 Behavioral Behavioral: Pt was cooperative throughout. ADLS ADLS: pt lives with mom in two story home pt states he does have flight of stairs to get to his room. Pt states he can perform all his ADLs and IADLs. states if he gets light headed he just sits. Pt states he does drive. Pt does not have to do any yard work. pt states he plays golf and plays flag football and will also play in a basketball club 1x a week. pt states he feels fine while participating but following about 1.5hrs and 2 hours following ( getting out of hot shower he notices dizziness) pt states he does have difficulty sleeping as well. Physical Examination ROM: pt demo full ROM of UB and LB Strength: fet2 peak force shoulder flexion right 26.9# left 27.3# shoulder extension right 43.4# left 40# Biceps right 30# left 33# Triceps right 33# left 33# Hip flexion right 53# left 52.8# Quadriceps right 39.4# left 41# Hamstrings right 36# left 34# pt demo with good functional strength Right Ichthyology Teacher Strength Average: 126.66 Right Ichthyology Teacher Strength Percentile: 55.4% Left Ichthyology Teacher Strength Average: 115.00 Left Ichthyology Teacher Strength Percentile: 60.7% Right Lateral Pinch Average: 22.66 Right Lateral Pinch Percentile: 50% Left Lateral Pinch Average: 23.33 Left Lateral Pinch Percentile: 50% Right Tripod Pinch Average: 20.00 Right Tripod Pinch Percentile: 25% Left Tripod Pinch Average: 18.66 Left Tripod Pinch Percentile: 25% Sensation: denies Fine Motor: denies Balance: functional reach 21" no loss of balance normal balance throughout session Non Material Handling Activities Bending: pt demo the ability to bend forward 3/3x 10/10x. pt c/o dizziness Squatting: Pt demo the ability to squat 3/3x, 10/10x no ability to squat 10x rapidly. pt states feeling of dizzy with this activity heart rate 65 sitting for 30 sec. heart rate 71 Kneeling: pt demo the ability to kneel 3/3x, 10/10x heart rate 101 Reaching out/up: pt demo the ability to reach up/out 3/3x. and 10/10x rapidly pt completed while siting hear rate 68 Walking: pt demo the ability to ambulate a reciprical step pattern with good pace. pt did not report a increase in his light headedness or dizziness with ambulation this day. pt can ambulate on occasional ability. Standing: pt demo the ability to stand for 8 min with no apparent or expressed symptoms of dizziness Sitting: pt demo the ability to sit for 45 min with no expressed or apparent discomfort. Climbing Stairs: pt demo the ability to ascend and descend 10 steps with a reciprocal step pattern with good ability. Dynamic Occasional Lifting Capacity Floor Lift: pt demo the ability to lift 50# maximally from this level with good ability. Knee Lift: pt demo the ability to lift 50# maximally from this level with good ability. Waist Lift: pt demo the ability to lift 50# maximally from this level with good ability. Shoulder Lift: pt demo the ability to lift 45# maximally from this level with good ability. Overhead Lift: pt demo the ability to lift 45# maximally from this level with good ability. 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 Pts symptoms of dizziness, lightheadedness and nausea will limit his work. Comments: pt physical ability does not limit is function- pts dx of POTS will limit him.
== END 2025-01-01 19:00 | disposition home or self-care (01) ==
LOC: OT 14:24
PROVIDERS: PCP Family Medicine; Referring Provider Family Medicine; Visit Provider Family Medicine
DX: I95.1 Orthostatic hypotension (principal); R00.0 Tachycardia, unspecified
CPT/HCPCS: 97750

== ENCOUNTER → 2025-01-08 | Outpatient (CLI) | payer OTHER, SELFPAY ==
--- NOTE | 2025-01-08 17:06 | MRI_ITS ---
PROCEDURE: BRAIN WITHOUT CONTRAST 01/08/2025 REASON FOR EXAM: AUTONOMIC DYSFUNCTION TECHNIQUE: Procedure Code: MRIBR Modality: MR Procedure: BRAIN WITHOUT CONTRAST Multiplanar and multisequence images were obtained. COMPARISON: None FINDINGS: There is asymmetry of the lateral ventricles with the right lateral ventricle relatively larger than the left lateral ventricle. There is no abnormal signal in the periventricular white matter. There is a normal sulcal pattern and gyral configuration. There is no evidence of acute intracranial hemorrhage or infarction. The fragoso-white differentiation is well preserved. There is no evidence of restricted diffusion. The ventricles and basilar cisterns are normal. There are normal flow voids demonstrated in the recognized intracranial vessels. The cerebellum and brainstem are unremarkable. The cerebellar pontine angles are normal. The craniovertebral junction is normal. The sella and suprasellar regions are normal. The orbits and retro-orbital regions are unremarkable. There is mild nasal septal deviation to the left. There is paradoxical coiling of the middle nasal ron on the right. There is mucoperiosteal thickening of both maxillary sinuses. The mastoid air cells are clear. There is normal bone marrow signal in the skull base and calvarium. MRI/Brain without Contrast IMPRESSION: There is lateral ventriculomegaly of indeterminate clinical significance. MR i maging of the brain is otherwise unremarkable. Other findings as noted. Reading Location: [id number]
== END | disposition home or self-care (01) ==
LOC: MRI 17:04
PROVIDERS: PCP Family Medicine; Referring Provider Psychiatry & Neurology Neurology; Visit Provider Psychiatry & Neurology Neurology
DX: G90.3 Multi-system degeneration of the autonomic nervous system (principal); Z87.820 Personal history of traumatic brain injury
CPT/HCPCS: 70551

== ENCOUNTER → 2025-01-30 | Outpatient (CLI) | payer OTHER, SELFPAY | END | disposition home or self-care (01) | LOC: PSN 08:39 | PROVIDERS: PCP Family Medicine; Visit Provider Psychiatry & Neurology Neurology | DX: G90.3 Multi-system degeneration of the autonomic nervous system (principal); G93.89 Other specified disorders of brain | CPT/HCPCS: 95819 ==